=== PATIENT | male | born 1975 | race African-American/Black ===

== ENCOUNTER 2024-10-03 12:19 | Emergency (ER) | payer SELFPAY ==
[~2024-10-03] VITALS: Ht 177.8 cm; Wt 80.0 kg
[2024-10-03 12:31] VITALS: BP 143/90; PULSE 78; RESP 18; TEMP 98.5; O2SAT 99
== END 2024-10-03 15:21 | disposition home or self-care (01) ==
LOC: ER 12:26
DX: R53.1 Weakness (principal); J45.909 Unspecified asthma, uncomplicated
CPT/HCPCS: 71045; 99283